=== PATIENT | male | born 1995 | race Caucasian/White ===

== ENCOUNTER 2018-11-08 13:27 | Emergency (ER) | payer OTHER ==
--- NOTE | 2018-11-08 14:47 | EDPHY ---
General Time Seen by Provider: 11/08/18 14:35 Narrative: CLINICAL IMPRESSION: Right flank pain, right-sided abdominal pain, DIANE ASSESSMENT/PLAN: Patient is a 23-year-old male with a significant medical history of attention deficit hyperactivity disorder who presents to the emergency department with right flank pain radiating into his right abdomen. Patient is afebrile, he is in no acute distress and not toxic-appearing. His abdomen was soft and nontender to palpation in all quadrants, no peritoneal signs or evidence of a surgical abdomen; right CVA tenderness. CBC revealed no evidence of leukocytosis or shift. His vital signs were reviewed and there was no evidence of sepsis or serious bacterial illness. BMP revealed a KI with a creatinine of 1.5, no metabolic abnormality. Lipase and hepatic panel grossly unremarkable without evidence of acute pancreatitis, acute hepatitis or acute hepatobiliary obstruction. Urine with no evidence of protein urea or infection. Right upper quadrant ultrasound revealed a contracted gallbladder without any evidence of rashmi cholecystic fluid or inflammation. CT abdomen and pelvis within normal appearing appendix, mild to moderate constipation, no obstructive uropathy and degenerative disc disease. History and physical examination is most consistent with DIANE, right flank and right-sided abdominal pain. I suspect his elevated creatinine is pre renal, no significant medical history or history of renal disease. Query musculoskeletal etiology of right flank pain in light of reassuring workup in the emergency department. There were no clinical findings to suggest appendicitis, cholecystitis, kidney stone, pancreatitis, ACS, pyelonephritis, perforated viscus, diverticulitis, hernia, AAA, mesenteric ischemia, or additional emergent intra-abdominal process. He had no testicular complaints to suggest testicular torsion or epididymitis. He was given 2 L of IV fluids and a Lidoderm patch was placed with improvement of his symptoms. On repeat examination the patient is well-appearing, his abdomen remained soft without evidence of a surgical abdomen. The patient is well established with his primary care provider and understands the importance of close follow-up. He also understands that he will need his kidney function rechecked and to avoid NSAIDs in the meantime. Strict return precautions discussed- he will return for increased or unmanageable pain, midline pain, fever, nausea, vomiting, worsening or localizing abdominal pain or for any other new, worsening or worrisome symptoms. Patient verbalizes understanding he is in agreement with this plan. DIFFERENTIAL DX: Abdominal pain including but not limited to appendicitis, cholecystitis, gastritis and urinary tract infection. CHIEF COMPLAINT: Right flank pain radiating into right abdomen HPI: Patient is a 23-year-old male with a significant medical history of attention deficit hyperactivity disorder who presents to the emergency department complaining of right flank pain and right upper abdominal pain. Patient reports on Thursday morning he woke up feeling and upset stomach and decreased appetite. He went skiing, proceeded to have some right-sided flank pain throughout the day and started radiating into his right mid and upper quadrant. He does have some ongoing chronic lumbar back pain which is unchanged. Patient reports that the pain at rest is very achy, he does experience some sharp sensations. The pain worsens with palpation. Patient was seen and evaluated at urgent care and sent here for further evaluation. Patient denies any fevers or chills. He has had low-grade nausea as mentioned however has had no vomiting. He denies any chest pain or shortness of breath. He denies any trauma or other recent injury. He has no history of abdominal surgeries and denies any testicular pain or swelling. He has had no urinary symptoms to include dysuria, hematuria or frequency. Bowel movements have been regular, no history of constipation. Patient denies saddle paresthesias, lower extremity numbness, tingling, major motor weakness, urinary retention or bowel/bladder incontinence. PMH: Attention deficit hyperactivity disorder Pertinent Past Surgical History: Denies Family History: Not contributory Social History: Occasional alcohol, denies illicit drug use, denies smoking REVIEW OF SYSTEMS: All other systems negative Constitutional: Decreased appetite. No fever, no chills. Eyes: No discharge, vision change ENT: No sore throat, congestion, ear pain. Cardiovascular: No chest pain, no palpitations. Respiratory: No cough, no shortness of breath. Gastrointestinal: Right-sided abdominal pain. No no vomiting, diarrhea. Genitourinary: Right-sided flank pain. No hematuria, dysuria, pelvic pain Musculoskeletal: Chronic low back pain. No joint swelling, joint pain, myalgias. Skin: No rashes, color change. Neurological: No headache, dizziness, weakness. PHYSICAL EXAM: General Appearance: Well developed, well appearing and in no acute distress HENT: Normocephalic, atraumatic. Bilateral external ears are normal. Bilateral tympanic membranes are normal with pearly betts reflex. Nares are clear, mucosa is pink. Oropharynx is clear, uvula is midline. There is no tonsillar enlargement or exudate. The dentition is normal. Eyes: PERRLA, no acute vision change, nystagmus, swelling, discharge, pain or photosensitivity. Conjunctiva pink, no pallor or injection Neck: Supple, nontender, no lymphadenopathy, no midline pain, FROM, no meningismus. Respiratory: There are no retractions, lungs are clear to auscultation. Cardiac: Regular rate and rhythm, no murmurs or gallops. Gastrointestinal: Patient's abdomen is soft and nondistended. On initial examination there is no appreciable tenderness to palpation in any quadrant. No masses/hernia, no rigidity, guarding or focal peritoneal findings. Right CVA tenderness. Neurological: Alert and oriented x 3, CN 2-12 grossly intact, normal gait no ataxia, DTR's intact, normal sensation and strength Skin: Warm, dry, no rashes, no nodules on palpation. Musculoskeletal: Extremities are symmetrical, full range of motion, no tenderness, deformity, swelling, or erythema. Back: No step-off, palpable bony abnormality, edema, erythema or ecchymosis of the cervical, thoracic or lumbar spines. No midline tenderness to palpation of the cervical, thoracic or lumbar spines. Full range of motion of all spines. 5/5 and equal strength of the UEs and LEs bilaterally including shoulder shrug. Pulses: 2+ and equal radial, DP and PT pulses bilaterally. Sensation intact and symmetric to light touch from face, UEs and LEs bilaterally. Straight leg raise negative bilaterally. Psychiatric: Patient is oriented X 3, there is no agitation. MEDICAL DECISION MAKING: Patient was seen independently. Secondary supervising physician at time of evaluation was Dr. Cervantes. Diagnosis: Right flank pain, a KI. New, requires workup Summary: See Assessment and Plan for summary of ED visit Clinical lab tests: ordered / reviewed. Independent visualization of images, tracing, or specimens: Yes. Decision to obtain medical records or history from someone other than the patient: No Review / Summarize previous medical records: No Discussed patient with another provider: Yes, Dr. Cervantes Patient Progress: Stable, discharge. - Diagnostics Imaging Results: Imaging Impressions Abdomen Ultrasound 11/08/18 14:47 Impression: 1. Partially contracted gallbladder, limiting assessment. If there is progression of the patient's symptoms, repeat imaging after being NPO for 6 to 8 hours may be considered. There is no bile duct dilatation. 2. Mild increased echogenicity of the right renal cortex, which is a nonspecific finding but has been reported in individuals with medical renal disease. Follow-up renal function tests are suggested. There is no evidence of obstructive uropathy or perinephric fluid. Findings were discussed with CAR Hernandez (Krissey) at 15:56, on 11/08/2018. Abdomen CT 11/08/18 16:11 Impression: 1. Partially-contracted gallbladder, with no pericholecystic fluid or bile duct dilatation. 2. There is no evidence of obstructive uropathy. 3. Normal appearance of the appendix. 4. [id number] constipation. 5. There is some accelerated degenerative change of the lower thoracic spine, with mild broad-based circumferential disk bulging at L4-L5 and L5-S1 also noted. Findings were discussed with CAR Hernandez (Krissey) at 16:51, on 11/08/2018. - History Smoking Status: Never smoked - Objective Vital Signs: Initial Vital Signs Temperature (C) 36.5 C 11/08/18 13:30 Heart Rate 65 11/08/18 13:30 Respiratory Rate 16 11/08/18 13:30 Blood Pressure 116/67 11/08/18 13:30 O2 Sat (%) 98 11/08/18 13:30 O2 Delivery Mode Room Air Allergies/Adverse Reactions: No Known Allergies Allergy (Unverified 11/08/18 13:29) Home Medications: Medication Instructions Recorded Concerta 11/08/18 Laboratory Results: Laboratory Results 11/08/18 14:26 11/08/18 14:26 11/08/18 11/08/18 11/08/18 14:26 14:26 14:20 WBC 8.77 10^3/uL 10^3/uL (3.80-9.50) RBC 4.94 10^6/uL 10^6/uL (4.40-6.38) Hgb 15.8 g/dL g/dL (13.7-17.5) Hct 46.5 % % (40.0-51.0) MCV 94.1 fL fL (81.5-99.8) MCH 32.0 pg pg (27.9-34.1) MCHC 34.0 g/dL g/dL (32.4-36.7) RDW 12.1 % % (11.5-15.2) Plt Count 230 10^3/uL 10^3/uL (150-400) MPV 9.9 fL fL (8.7-11.7) Neut % (Auto) 63.3 % % (39.3-74.2) Lymph % (Auto) 24.5 % % (15.0-45.0) Nance % (Auto) 7.8 % % (4.5-13.0) Eos % (Auto) 3.5 % % (0.6-7.6) Baso % (Auto) 0.7 % % (0.3-1.7) Nucleat RBC Rel Count 0.0 % % (0.0-0.2) Absolute Neuts (auto) 5.55 10^3/uL 10^3/uL (1.70-6.50) Absolute Lymphs (auto) 2.15 10^3/uL 10^3/uL (1.00-3.00) Absolute Monos (auto) 0.68 10^3/uL 10^3/uL (0.30-0.80) Absolute Eos (auto) 0.31 10^3/uL 10^3/uL (0.03-0.40) Absolute Basos (auto) 0.06 10^3/uL 10^3/uL (0.02-0.10) Absolute Nucleated RBC 0.00 10^3/uL 10^3/uL (0-0.01) Immature Gran % 0.2 % % (0.0-1.1) Immature Gran # 0.02 10^3/uL 10^3/uL (0.00-0.10) Sodium 141 mEq/L mEq/L (135-145) Potassium 4.1 mEq/L mEq/L (3.5-5.2) Chloride 106 mEq/L mEq/L (97-110) Carbon Dioxide 26 mEq/l mEq/l (22-31) Anion Gap 9 mEq/L mEq/L (6-14) BUN 26 mg/dL H mg/dL (7-23) Creatinine 1.5 mg/dL H mg/dL (0.7-1.3) Estimated GFR 59 Glucose 80 mg/dL mg/dL (70-100) Calcium 9.5 mg/dL mg/dL (8.5-10.4) Total Bilirubin 0.5 mg/dL mg/dL (0.1-1.4) Conjugated Bilirubin 0.3 mg/dL mg/dL (0.0-0.5) Unconjugated Bilirubin 0.2 mg/dL mg/dL (0.0-1.1) AST 27 IU/L IU/L (17-59) ALT 31 IU/L IU/L (21-72) Alkaline Phosphatase 84 IU/L IU/L (38-126) Total Protein 7.7 g/dL g/dL (6.3-8.2) Albumin 4.9 g/dL g/dL (3.5-5.0) Lipase 114 IU/L IU/L (23-300) Urine Color PALE YELLOW Urine Appearance CLEAR Urine pH 6.0 (5.0-7.5) Ur Specific [place] 1.003 (1.002-1.030) Urine Protein NEGATIVE (NEGATIVE) Urine Ketones NEGATIVE (NEGATIVE) Urine Blood NEGATIVE (NEGATIVE) Urine Nitrate NEGATIVE (NEGATIVE) Urine Bilirubin NEGATIVE (NEGATIVE) Urine Urobilinogen NEGATIVE EU EU (0.2-1.0) Ur Leukocyte Esterase NEGATIVE (NEGATIVE) Urine Glucose NEGATIVE (NEGATIVE) Medications Given: Discontinued Medications Sodium Chloride (Ns) 1,000 mls @ 0 mls/hr IV ONCE ONE PRN Reason: Wide Open Stop: 11/08/18 16:01 Last Admin: 11/08/18 16:13 Dose: 1,000 mls Sodium Chloride (Ns) 1,000 mls @ 0 mls/hr IV ONCE ONE PRN Reason: Wide Open Stop: 11/08/18 16:08 Last Admin: 11/08/18 16:13 Dose: 1,000 mls Miscellaneous Medication (Icy Hot Lidocaine/Menthol 4%/1% Patch) 1 patch TD EDNOW ONE Stop: 11/08/18 16:58 Last Admin: 11/08/18 17:48 Dose: 1 patch Departure - Departure Disposition: Home, Routine, Self-Care Clinical Impression: Flank pain Condition: Good Instructions: Flank Pain (ED) Additional Instructions: DISCHARGE INSTRUCTIONS FROM YOUR DOCTOR Thank you for visiting our emergency department today. Please keep in mind that discharge from the emergency department does not mean that there is nothing wrong - it simply means that we have not identified an emergency condition that requires further evaluation or treatment in the hospital. You should always plan to follow up with primary care for re-evaluation of your condition in the next 2-3 days. Your laboratory studies and imaging today is very reassuring. It is possible that your pain is musculoskeletal in nature. The majority of back pain will improve regardless of treatment within 4-6 weeks. Regardless, I recommend you follow up with primary care for recheck as soon as possible. Additional evaluation as an outpatient may be needed, and further therapeutic modalities such as chiropractic or PT may be helpful. Rest. Avoid lifting greater than 10-15 pounds. Avoid twisting or prolonged sitting. Movement and gentle walking is good for your back. Try to walk for 15-10 minutes on an even surface 3 or 4 times a day as tolerated and increase gentle exercise as your back improves. Apply ice to your low back during acute pain phase, later a heating pad set to a low setting or hot tub may be helpful to help relax muscles. If you feel that the pain patch to help you, you may purchase this over-the- counter at your pharmacy. Please follow the instructions on the packaging. Salonpas. Your kidney function was mildly elevated today and will need to be rechecked as an outpatient with your primary care provider. Avoid anti-inflammatories such as ibuprofen, Motrin, Advil or Aleve. You may take Tylenol as needed for discomfort, I recommend 500 mg to a 1000 mg every 6-8 hours. Do not exceed 4000 mg in a 24 hr period. Schedule a follow-up appointment with your primary care physician in the next 2- 3 days for re-evaluation. You may require further treatment, physical therapy and/or further future testing. Return for increased or unmanageable pain, new injury, new midline back pain, numbness, tingling, weakness of your legs, loss of bowel or bladder control, inability to urinate, burning or pain with urination, blood in the urine, fever , chills, abdominal pain, vomiting, difficulty walking, dizziness, fainting, chest pain, shortness of breath, neck pain, neck stiffness, other site of back pain, calf pain, leg redness or swelling, or for any other new, worsening or worrisome symptoms. People present with illnesses and injuries in different ways, and it is always possible that we have missed something. You may always return for re-evaluation if symptoms worsen or if they are not improving or if you develop new/different symptoms. Again, thank you for choosing our emergency department. We hope that you feel better. Referrals: [facility] [Other] - 1-2 days without fail
[2018-11-08 14:49] LABS: PLATELET COUNT 230 10^3/uL (150-400)
[2018-11-08] MEDS ORDERED: NS 1,000 ML IV ONE ×2 (16:00→16:07)
[2018-11-08] MEDS ORDERED: IOPAMIDOL (ISOVUE 370) 100 ML BTL IV ONE (16:17)
[2018-11-08] MEDS ORDERED: LIDOCAINE 4%/MENTHOL 1% PATCH TD ONE (16:57)
[2018-11-08 17:51] VITALS: BP 141/81
[2018-11-08] MEDS ORDERED: PATCH REMOVAL 1 EA PATCH TD SCH (21:00)
== END 2018-11-08 17:58 | disposition home or self-care (01) ==
DX: R10.31 Right lower quadrant pain (principal); E86.9 Volume depletion, unspecified; F90.9 Attention-deficit hyperactivity disorder, unspecified type
CPT/HCPCS: Q9967